=== PATIENT | female | born 1995 | race Caucasian/White ===

== ENCOUNTER 2017-08-06 16:47 | Emergency (ER) | payer OTHER ==
[~2017-08-06] VITALS: Ht 162.6 cm; Wt 61.6 kg
[~2017-08-06 16:47] MED LIST: NOHOMEMEDS
[2017-08-06 19:52] VITALS: BP 114/62
== END 2017-08-06 19:53 | disposition home or self-care (01) ==
LOC: EME 16:47
DX: S61.012A Laceration without foreign body of left thumb without damage to nail, initial encounter (principal); W26.0XXA Contact with knife, initial encounter; Y99.0 Civilian activity done for income or pay; Z23 Encounter for immunization
CPT/HCPCS: 99281; 99284